=== PATIENT | female | born 1990 | race Two or more races ===

== ENCOUNTER 2021-10-02 13:01 | Emergency (ER) | payer OTHER ==
[~2021-10-02] VITALS: Ht 160 cm; Wt 62.5 kg
[2021-10-02 13:01] VITALS: BP 112/66
[2021-10-02] MEDS ORDERED: IV NORMAL SALINE 1,000ML 1,000 ML IV ONE (13:30)
--- NOTE | 2021-10-02 13:48 | PHYS DOC ---
Past History Past Surgical History: Alcohol Use: None General Adult EDM: Chief Complaint: DIZZY/LIGHT HEADED HPI: HPI: 30-year-old female presents with dizziness. Patient has been feeling lightheaded and off-balance yesterday and today. The symptoms are intermittent. She started working out at the gym last week. She states eating and drinking normally. No history of anemia or dizzy spells. Her blood pressure has been the past. [place] and there was "a significant change". They advised her to come to the emergency room. The patient's symptoms are worse from sitting to standing. She denies fever or chills. Review of Systems: Review of Systems: Constitutional: Denies fever or chills Eyes: Denies change in visual acuity HENT: Denies nasal congestion or sore throat Respiratory: Denies cough or shortness of breath Cardiovascular: Denies chest pain or edema GI: Denies abdominal pain, nausea, vomiting, bloody stools or diarrhea : Denies dysuria Musculoskeletal: Neck soreness worse on the left Integument: Denies rash Neurologic: Dizziness. Denies headache, focal weakness or sensory changes Endocrine: Denies polyuria or polydipsia Lymphatic: Denies swollen glands Psychiatric: Denies depression or anxiety Current Medications: Current Meds: Current Medications Medications (Trade) Dose Ordered Sig/Mario Start Time Stop Time Status Last Admin Dose Admin Sodium Chloride 1,000 ml @ 1,000 mls/hr 1X ONCE 10/02/21 13:30 10/02/21 14:29 Allergies: Allergies: Allergies Coded Allergies Type Severity Reaction Last Updated Verified No Known Drug Allergies 10/02/21 No Physical Exam: PE: Constitutional: Well developed, well nourished, no acute distress, non-toxic appearance. [] HENT: Normocephalic, atraumatic, bilateral external ears normal, oropharynx m oist, no oral exudates, nose normal. [] Eyes: PERRLA, EOMI, conjunctiva normal, no discharge. [] Neck: Normal range of motion, tenderness and muscle spasm of the left paracervical muscles, no step-offs or obvious deformity. [] Cardiovascular: Heart rate regular rhythm, no murmur [] Lungs & Thorax: Bilateral breath sounds clear to auscultation [] Abdomen: Bowel sounds normal, soft, no tenderness, no masses, no pulsatile masses. [] Skin: Warm, dry, no erythema, no rash. [] Back: No tenderness, no CVA tenderness. [] Extremities: No tenderness, no cyanosis, no clubbing, ROM intact, no edema. [] Neurologic: Alert and oriented X 3, normal motor function, normal sensory function, no focal deficits noted. [] Psychologic: Affect normal, judgement normal, mood normal. [] Current Patient Data: Vital Signs: Vital Signs Date Time Temp Pulse Resp B/P (MAP) Pulse Ox O2 Delivery O2 Flow Rate FiO2 10/02/21 13:01 97.9 65 112/66 (81) 100 Room Air 10/02/21 13:01 16 EKG: EKG: [] Radiology/Procedures: Radiology/Procedures: [] Impressions: XR CERVICAL SPINE 2-3V History: Reason: left sided neck pain Comparison: None. Technique: 3 views of the cervical spine. Findings: There are 7 non-rib bearing cervical vertebral segments. There is no evidence of fracture. No destructive osseous lesions are seen. Minimal reversal of the normal cervical lordosis with apex at C4-C5. No significant facet disease. Disc spaces are preserved. Soft tissues are unremarkable. IMPRESSION: 1. Mild reversal of the normal cervical lordosis. Otherwise no significant degenerative disc or facet disease in the cervical spine. Electronically signed by: Nilson Herrera MD (10/02/2021 2:09 PM) [id number] DICTATED AND SIGNED BY: NILSON HERRERA MD DATE: 10/02/21 1407 CC: TEMO IRWIN DO; PCP,NO ~MTH0 0 Heart Score: C/O Chest Pain: N/A Risk Factors: Risk Factors: DM, Current or recent (<one month) smoker, HTN, HLP, family history of CAD, obesity. Risk Scores: Score 0 - 3: 2.5% MACE over next 6 weeks - Discharge Home Score 4 - 6: 20.3% MACE over next 6 weeks - Admit for Clinical Observation Score 7 - 10: 72.7% MACE over next 6 weeks - Early Invasive Strategies Course & Med Decision Making: Course & Med Decision Making Pertinent Labs and Imaging studies reviewed. (See chart for details) The patient's labs are unremarkable. Her cervical spine x-ray is only significant for slight straightening of the lordosis. See official read for more details. Her urinalysis is negative for infection. Urine toxicology is negative. Her rapid COVID and influenza are negative. We have given the patient a liter of normal saline. The patient is feeling better after her fluids. I do not see any concerning findings. She is stable for discharge at this time. [] Dragon Disclaimer: Dragon Disclaimer: This electronic medical record was generated, in whole or in part, using a voice recognition dictation system. Departure Departure: Impression: Primary Impression: Dizziness Additional Impression: Dehydration Disposition: 01 HOME / SELF CARE / HOMELESS Condition: STABLE Referrals: PCP,NO (PCP) Patient Instructions: Dehydration, Adult, [id number], Dizziness, [id number] TEMO IRWIN DO Oct 02, 2021 13:48
--- NOTE | 2021-10-02 14:11 | RAD ---
XR CERVICAL SPINE 2-3V History: Reason: left sided neck pain Comparison: None. Technique: 3 views of the cervical spine. Findings: There are 7 non-rib bearing cervical vertebral segments. There is no evidence of fracture. No destructive osseous lesions are seen. Minimal reversal of the normal cervical lordosis with apex at C4-C5. No significant facet disease. Disc spaces are preserved. Soft tissues are unremarkable. IMPRESSION: 1. Mild reversal of the normal cervical lordosis. Otherwise no significant degenerative disc or face t disease in the cervical spine. Electronically signed by: Nilson Herrera MD (10/02/2021 2:09 PM) [id number]
[2021-10-02 14:14] LABS: BASO % 0 % (0-3); EOS # 0.2 x10^3/uL (0.0-0.7); EOS % 3 % (0-3); HEMATOCRIT 37.2 % (36.0-47.0); HEMOGLOBIN 12.9 g/dL (12.0-15.5); LYMPH # 2.1 x10^3/uL (1.0-4.8); LYMPH % 28 % (24-48); MEAN CORPUSCULAR HEMOGLOBIN 30 pg (25-35); MEAN CORPUSCULAR HGB CONC 35 g/dL (31-37); MEAN CORPUSCULAR VOLUME 88 fL (79-100); MONO # 0.6 x10^3/uL (0.0-1.1); MONO % 8 % (0-9); NEUT # 4.4 x10^3uL (1.8-7.7); NEUT % 61 % (31-73); PLATELET COUNT 237 x10^3/uL (140-400); RED BLOOD COUNT 4.23 x10^6/uL (3.50-5.40); WHITE BLOOD COUNT 7.3 x10^3/uL (4.0-11.0)
[2021-10-02 14:17] LABS: CREATININE 0.6 mg/dL (0.6-1.0); GFR 115.9; POTASSIUM 4.8 mmol/L (3.5-5.1)
[2021-10-02 14:22] LABS: ALBUMIN/GLOBULIN RATIO 1.3 (1.0-1.7); TOTAL BILIRUBIN 0.4 mg/dL (0.2-1.0); TOTAL PROTEIN 7.1 g/dL (6.4-8.2)
[2021-10-02 15:12] LABS: BARBITURATES NEG (NEG); BENZODIAZEPINES NEG (NEG); CANNABINOIDS NEG (NEG); COCAINE NEG (NEG); METHADONE NEG (NEG); OPIATES NEG (NEG); PHENCYCLIDINE NEG (NEG)
[2021-10-02 15:14] LABS: AMPHETAMINE/METHAMPHETAMINE NEG (NEG)
[2021-10-02 15:20] LABS: BACTERIA,URINE 0 /HPF (0-FEW); BILIRUBIN,URINE NEG (NEG); CLARITY,URINE CLEAR; COLOR,URINE YELLOW; GLUCOSE,URINE NEG (NEG); NITRITE,URINE NEG (NEG); SQUAMOUS EPITHELIAL CELL,UR FEW /LPF; UROBILINOGEN,URINE 0.2 mg/dL (0.2 mg/dL); WBC,URINE 0 /HPF (0-4)
[2021-10-02 15:29] LABS: INFLUENZA A PATIENT NEGATIVE (NEGATIVE); INFLUENZA B PATIENT NEGATIVE (NEGATIVE)
== END 2021-10-02 15:50 | disposition home or self-care (01) ==
LOC: ER 13:01
DX: E86.0 Dehydration (principal); R42 Dizziness and giddiness; Z20.822 Contact with and (suspected) exposure to COVID-19
CPT/HCPCS: 36415; 72040; 80053; 80307; 81001; 85025; 87428; 96360; 99284; J7030